=== PATIENT | male | born 1970 | race Hispanic/Latino ===

== ENCOUNTER 2022-02-14 12:30 | Emergency (ER) | payer SELFPAY ==
[2022-02-14 14:28] LABS: Basophils # (Auto) 0.1 K/mm3 (0.0-0.1); Basophils % (Auto) 1.3 % (0.0-1.8); Eosinophils # (Auto) 0.1 K/mm3 (0.0-0.4); Hematocrit 48.2 % (35.5-45.6); Hemoglobin 16.3 gm/dl (11.8-15.2); Lymphocytes # (Auto) 1.7 K/mm3 (1.2-5.4); Lymphocytes % (Auto) 21.1 % (13.4-35.0); Mean Corpuscular HGB Conc 34 % (32-34); Mean Corpuscular Volume 93 fl (84-94); Monocytes # (Auto) 0.6 K/mm3 (0.0-0.8); Monocytes % (Auto) 7.3 % (0.0-7.3); Platelet Count 213 K/mm3 (140-440); Red Blood Count 5.21 M/mm3 (3.65-5.03); Red Cell Distribution Width 13.6 % (13.2-15.2)
[2022-02-14 14:47] LABS: Alanine Aminotransferase 18 units/L (7-56); Albumin 4.8 g/dL (3.9-5); Blood Urea Nitrogen 15 mg/dL (9-20); Calcium 9.9 mg/dL (8.4-10.2); Hemolysis Index 9
[2022-02-14 14:48] LABS: BUN/Creatinine Ratio 25
--- NOTE | 2022-02-14 17:30 | Emergency Department Report ---
ED Psych HPI - General Chief Complaint: Psych Stated Complaint: MENTAL EVAL Time Seen by Provider: 02/14/22 17:19 Source: patient Mode of arrival: Ambulatory - History of Present Illness Initial Comments: Patient is a 51-year-old male who presents emergency room for suicidal idea tions, depression anxiety. Patient states that his symptoms are worsening. He states symptoms started 3 days ago. Patient states he has a history of overdose. Patient states his plan is to overdose. Patient states he is done it multiple times. Patient also complains of racing thoughts. Patient states he is very nervous. Patient complains of anxiety. Patient complains of depression. Patient denies hallucinations. Patient denies homicidal ideations. Patient denies recent travel. Patient denies recent international travel. Patient denies exposure to the novel coronavirus. Patient denies sick contacts. Patient denies fever and chills. Patient denies cough. Patient denies diarr hea. Patient denies coming in contact with anybody with symptoms of the novel coronavirus. Patient denies other physical complaints. MD Complaint: suicidal ideation, feels depressed -: Sudden Associated Psychiatric Symptoms: depression, suicidal ideation, racing thoughts, delusions History of same: Yes Quality: constant Improves With: none Worsens With: none Associated Symptoms: denies: confusion, headache, shortness of breath, nausea, vomiting, syncope, insomnia Treatments Prior to Arrival: placed on mental he If Self Harm: admits thoughts of, has plan - Related Data Allergies Allergy/AdvReac Type Severity Reaction Status Date / Time carisoprodol [From Soma] Allergy Dizziness Verified 02/14/22 12:53 ED Review of Systems ROS: Stated complaint: MENTAL EVAL Other details as noted in HPI Constitutional: denies: chills, fever Eyes: denies: eye pain, eye discharge, vision change ENT: denies: ear pain, throat pain Respiratory: denies: cough, shortness of breath, wheezing Cardiovascular: denies: chest pain, palpitations Endocrine: no symptoms reported Gastrointestinal: denies: abdominal pain, nausea, diarrhea Genitourinary: denies: urgency, dysuria Musculoskeletal: denies: back pain, joint swelling, arthralgia Skin: denies: rash, lesions Neurological: denies: headache, weakness, paresthesias Psychiatric: as per HPI, anxiety, depression, suicidal thoughts Hematological/Lymphatic: denies: easy bleeding, easy bruising ED Past Medical Hx - Past Medical History Previous Medical History?: Yes Hx Psychiatric Treatment: Yes (DEPRESSION/ SHIZOPHRENIC) - Surgical History Past Surgical History?: No - Family History Family history: no significant - Social History Smoking Status: Never Smoker Substance Use Type: None ED Physical Exam - General Limitations: No Limitations General appearance: alert, in no apparent distress - Head Head exam: Present: atraumatic, normocephalic - Eye Eye exam: Present: normal appearance - ENT ENT exam: Present: mucous membranes moist - Neck Neck exam: Present: normal inspection - Respiratory Respiratory exam: Present: normal lung sounds bilaterally. Absent: respiratory distress - Cardiovascular Cardiovascular Exam: Present: regular rate, normal rhythm. Absent: systolic murmur, diastolic murmur, rubs, gallop - GI/Abdominal GI/Abdominal exam: Present: soft, normal bowel sounds - Rectal Rectal exam: Present: deferred - Extremities Exam Extremities exam: Present: normal inspection - Back Exam Back exam: Present: normal inspection - Neurological Exam Neurological exam: Present: alert, oriented X3 - Psychiatric Psychiatric exam: Present: depressed, anxious, suicidal ideation - Skin Skin exam: Present: warm, dry, intact, normal color. Absent: rash ED Course Vital Signs 02/14/22 13:01 Temperature 97.7 F Pulse Rate 82 Respiratory 18 Rate Blood Pressure 172/116 [Right] O2 Sat by Pulse 100 Oximetry - Reevaluation(s) Reevaluation #1: Patient placed on a 1013. Patient has been evaluated by psych and they agree with the plan of care. 02/14/22 17:20 Reevaluation #2: Patient is medically cleared. Patient will remain in the ER as an ER hold and on 1013. Patient's final disposition will come from our psychiatry team. 02/14/22 17:29 ED Medical Decision Making - Lab Data Result diagrams: 02/14/22 13:47 02/14/22 13:47 - Medical Decision Making Patient is a 51-year-old male who presents emergency room for mental health evaluation due to suicidal ideations, depression anxiety. Patient was evaluated by our psychiatry team and they recommended a 1013. Patient was placed on a 1013 while in the ER. Patient was also placed on a ER hold. Patient had labs done. Patient's labs are essentially unremarkable. Patient is medically cleared. Patient remained in the ER as an ER hold until the patient is cleared by our mental health and psychiatry team. Patient's final disposition will come from our psychiatry team. - Differential Diagnosis Suicidal ideation, depression, anxiety, mental health evaluation Critical care attestation.: If time is entered above; I have spent that time in minutes in the direct care of this critically ill patient, excluding procedure time. ED Disposition Clinical Impression: Suicidal ideations Depression Qualifiers: Depression Type: unspecified Qualified Code(s): F32.A - Depression, unspecified Disposition: [address] [place] [address] Is pt being admited?: No Does the pt Need Aspirin: No Condition: Stable Referrals: PRIMARY CARE, [Primary Care Provider] - 2-3 Days Time of Disposition: 17:31
--- NOTE | 2022-02-15 10:02 | Consultation ---
History of Present Illness - Reason for Consult Consult date: 02/15/22 Reason for consult: suicidal ideation - History of Present Psychiatric Illness ED Note: Patient is a 51-year-old male who presents emergency room for suicidal ideations, depression anxiety. Patient states that his symptoms are worsening. He states symptoms started 3 days ago. Patient states he has a history of overdose. Patient states his plan is to overdose. Patient states he is done it multiple times. Patient also complains of racing thoughts. Patient states he is very nervous. Patient complains of anxiety. Patient complains of depression. Patient denies hallucinations. Patient denies homicidal ideations. The patient is a 51 year old male with history of schizophrenia who presents to the ED with suicidal ideation. In my encounter with the patient, he is calm alert and oriented x2. He reports ongoing depression for the past 5 months. He reports that yesterday, he was thinking about people in his family that some years back such as, his father, nephew, and sister " I was thinking of taking some pills but I didn't." The patient endorses suicidal ideation with a plan to overdose on medications. He reports having auditory hallucinations " voices telling me to harm myself." PAST PSYCHIATRIC HISTORY Diagnoses: Depression Suicide attempts or Self-harm behavior:Yes Prior psychiatric hospitalizations: Yes Substance Abuse history:Denies Previous psychiatric medications tried:Unable to recall Outpatient treatment: Unknown SOCIAL HISTORY Marital Status: Single Living Arrangements: correction Employment Status: Unemployed Access to guns/weapons: Denies Education: 9th grade History of abuse: Denies Legal History: Denies ROS Constitutional: Negative for weight loss EMT: Respiratory: Negative for cough or hemoptysis All other systems reviewed and are negative MENTAL STATUS EXAMINATION General Appearance: Dressed appropriately. Behavior: Calm and cooperative. Good eye contact. Mood: Depressed Affect:Congruent to stated mood Speech: Normal tone and pace Thought Process: Goal oriented Thought Content: Suicidal Suicidal Ideation: Yes Homicidal Ideation: Denies Hallucinations: Auditory Delusions: None elicited Insight and Judgment: Limited Memory/Cognition: Limited Assessment and Plan (1)Major depressive disorder (2) Treatment Plan 1013 Continue home medications as previously prescribed. Start Abilify 10mg po daily Start Trazodone 50mg po QHS Start Vistaril 25mg po Q6 hrs PRN Risks, benefits and alternatives of medications discussed with the patient, questions answered and consent obtained from patient. PSYCHOTHERAPY: Supportive psychotherapy provided MEDICAL: Per primary team DELIRIUM PRECAUTIONS: Please re-orient patient frequently, keep lights on during the day, and minimize benzodiazepines and opiates as these medications could worsen patient's confusion. PAYROLL ACCOUNTING CLERK: Per primary DISPOSITION: Recommend acute inpatient psychiatric hospitalization at this time. Will follow. Thank you for the consult. Please contact with any questions and/or concerns. Case discussed with Dr. Gant who agrees with current disposition Medications and Allergies Medications and Allergies Allergies Allergy/AdvReac Type Severity Reaction Status Date / Time carisoprodol [From Soma] Allergy Dizziness Verified 02/14/22 12:53 Mental Status Exam - Vital signs Last Vital Signs Temp 97.5 F L 02/15/22 01:58 Pulse 62 02/15/22 01:58 Resp 16 02/15/22 01:58 BP 98/62 02/15/22 01:58 Pulse Ox 95 02/15/22 01:58 Results Result Diagrams: 02/14/22 13:47 02/14/22 13:47 Abnormal lab results 02/14/22 02/14/22 02/14/22 Range/Units 13:47 13:47 13:47 RBC 5.21 H (3.65-5.03) M/mm3 Hgb 16.3 H (11.8-15.2) gm/dl Hct 48.2 H (35.5-45.6) % Creatinine 0.6 L (0.8-1.3) mg/dL Alkaline Phosphatase 145 H (35-129) units/L Total Protein 8.3 H (6.3-8.2) g/dL Salicylates < 0.3 L (2.8-20.0) mg/dL Acetaminophen (10.0-30.0) ug/mL 02/14/22 Range/Units 13:47 RBC (3.65-5.03) M/mm3 Hgb (11.8-15.2) gm/dl Hct (35.5-45.6) % Creatinine (0.8-1.3) mg/dL Alkaline Phosphatase (35-129) units/L Total Protein (6.3-8.2) g/dL Salicylates (2.8-20.0) mg/dL Acetaminophen 5.0 L (10.0-30.0) ug/mL All other labs normal.
[2022-02-15] MEDS ORDERED: hydrOXYzine PAMOATE 25 MG CAP PO PRN (10:04)
[2022-02-15] MEDS ORDERED: ARIPiprazole 10 MG TAB PO SCH (11:00)
--- NOTE | 2022-02-15 11:09 | Event Note ---
Date: 02/15/22 vss , no distress no events overinght medically cleared awaiting psych transfer
[2022-02-15 19:26] VITALS: BP 135/93
[2022-02-15 19:42] LABS: Bilirubin,Urine NEG (Negative); Blood,Urine NEG (Negative); Color,Urine Yellow (Yellow)
[2022-02-15 19:54] LABS: WBC,Urine > 182.0 /HPF (0.0-6.0)
[2022-02-15] MEDS ORDERED: cephALEXin 500 MG CAP PO ONE (20:29)
[2022-02-15 20:31] LABS: Amphetamine Screen,Urine PRESUMPTIVE NEGATIVE; Benzodiazepines Screen,Urine PRESUMPTIVE NEGATIVE; Cannabinoid Screen,Urine PRESUMPTIVE NEGATIVE; Cocaine Screen,Urine PRESUMPTIVE NEGATIVE; Methadone Screen,Urine PRESUMPTIVE NEGATIVE; Opiate Screen,Urine PRESUMPTIVE NEGATIVE
[2022-02-15] MEDS ORDERED: traZODone 50 MG TAB PO SCH (22:00)
== END 2022-02-16 01:00 ==
LOC: ED 12:30
DX: F32.9 Major depressive disorder, single episode, unspecified (principal); Z20.822 Contact with and (suspected) exposure to COVID-19; F20.9 Schizophrenia, unspecified; Z79.899 Other long term (current) drug therapy
CPT/HCPCS: 36415; 80053; 80307; 81001; 84443; 85025; 99285; U0003; 80320; G0480